=== PATIENT | male | born 1990 | race Caucasian/White ===

== ENCOUNTER 2021-07-04 09:00 | Emergency (ER) | payer BC, OTHER ==
[2021-07-04 11:22] LABS: RED BLOOD COUNT 5.38 M/UL (4.20-5.50); WHITE BLOOD COUNT 7.2 K/UL (4.5-11.0)
[2021-07-04 11:56] LABS: BUN/CREATININE RATIO 11 (0-10)
[2021-07-04] MEDS ORDERED: IBUPROFEN800 MG PO (15:39)
[2021-07-04] MEDS ORDERED: CYCLOBENZAPRINE5 MG PO (15:39)
== END 2021-07-04 15:50 | disposition home or self-care (01) ==
LOC: ER1 09:00
PROVIDERS: Emergency Medicine
DX: R07.9 Chest pain, unspecified (principal); Z20.822 Contact with and (suspected) exposure to COVID-19
CPT/HCPCS: 71045; 80053; 82550; 82553; 83605; 83690; 84484; 85025; 96374; 99284; J0696; Q9967; U0002